=== PATIENT | female | born 1950 | race Caucasian/White ===

== ENCOUNTER → 2023-07-16 07:05 | Outpatient (REF) | payer MEDICARE, OTHER, SELFPAY | LOC: RAD 07:05 | PROVIDERS: ATTENDING PHYSICIAN Ophthalmology; FAMILY PHYSICIAN Family Medicine | DX: H34.211 Partial retinal artery occlusion, right eye (principal) | CPT/HCPCS: 93880 ==

== ENCOUNTER → 2023-08-10 07:43 | Outpatient (REF) | payer MEDICARE, OTHER, SELFPAY | LOC: DHCBC/DCA 07:43 | PROVIDERS: ATTENDING PHYSICIAN Physician Assistant; FAMILY PHYSICIAN Family Medicine | DX: R00.2 Palpitations (principal); R07.89 Other chest pain; I21.19 ST elevation (STEMI) myocardial infarction involving other coronary artery of inferior wall; I95.1 Orthostatic hypotension | CPT/HCPCS: 78452; 93017; A9500; J2785 ==

== ENCOUNTER → 2024-08-30 15:03 | Outpatient (REF) | payer MEDICARE, OTHER, SELFPAY ==
[2024-08-30 17:08] LABS: Urine Albumin Negative (Neg - Trace); Urine Bilirubin Negative (Negative); Urine Character Clear (Clear); Urine Color Yellow; Urine Glucose Negative (Negative); Urine Ketone Negative (Negative); Urine Leukocyte Negative (Negative); Urine Nitrite Negative (Negative); Urine Occult Blood Negative (Negative); Urine Urobilinogen Negative (Neg - 1+)
== END ==
LOC: REG 15:03
PROVIDERS: ATTENDING PHYSICIAN Family Medicine
DX: S29.9XXA Unspecified injury of thorax, initial encounter (principal); N30.90 Cystitis, unspecified without hematuria
CPT/HCPCS: 71101; 81003

== ENCOUNTER → 2025-05-31 14:13 | Outpatient (REF) | payer MEDICARE, OTHER, SELFPAY | LOC: RAD 14:13 | PROVIDERS: ATTENDING PHYSICIAN Nurse Practitioner; FAMILY PHYSICIAN Family Medicine | DX: R05.1 Acute cough (principal) | CPT/HCPCS: 71046 ==